=== PATIENT | female | born 1975 | race Asian ===

== ENCOUNTER 2016-09-25 10:37 | Emergency (ER) | payer OTHER ==
[2016-09-25 10:46] VITALS: BP 132/86; PULSE 98; RESP 18; TEMP 98.2; O2SAT 97
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
== END 2016-09-25 12:27 | disposition home or self-care (01) ==
DX: S40.022A Contusion of left upper arm, initial encounter (principal); S40.011A Contusion of right shoulder, initial encounter; V13.4XXA Pedal cycle driver injured in collision with car, pick-up truck or van in traffic accident, initial encounter; Y92.410 Unspecified street and highway as the place of occurrence of the external cause; Y99.8 Other external cause status